=== PATIENT | female | born 1960 | race Caucasian/White ===

== ENCOUNTER 2018-08-23 11:49 | Inpatient (IN) | payer BC ==
[~2018-08-23 11:49] MED LIST: Buffered Lidocaine 0.9% SYRIN* 5 ML/SYR SYRINGE INTRADERM ONE; Bupivacaine 0.25% W/EPI* 10 ML SDV ONE; Lactated Ringers 1000 ML Bag* 1,000 ML IV SCH; Methylene Blue 0.5 %* 50 MG/10 ML AMP IV ONE
[2018-08-23] MEDS ORDERED: Heparin VIAL(*) 5000 UNITS/ML VIAL (FIVE THOUSAND) ONE (12:28)
[2018-08-23] MEDS ORDERED: ceFAZolin 2 GM PREMIX in ORs 2 GM/50 ML BAG IVPB ONE (12:28)
[2018-08-23] MEDS ORDERED: Scopolamine 1.5 mg* PATCH ONE (13:13)
[2018-08-23] MEDS ORDERED: Midazolam* 1 MG/ML 5 ML VIAL (5 MG) ONE (14:07)
[2018-08-23] MEDS ORDERED: Propofol* 10 MG/ML 20 ML BTL ONE (14:12)
[2018-08-23] MEDS ORDERED: fentaNYL* 50 MCG/ML 2 ML VIAL (100 MCG VIAL) ONE ×3 (14:18→16:37)
[2018-08-23] MEDS ORDERED: Atracurium* 10 MG/ML 10 ML VIAL ONE (14:19)
[2018-08-23] MEDS ORDERED: Dexamethasone IV* 4 MG/ML 1 ML (4 MG) ONE (14:25)
[2018-08-23] MEDS ORDERED: DiMENhydriNATE IV* 50 MG/ML VIAL IV PUSH PRN (15:42)
[2018-08-23] MEDS ORDERED: Ondansetron INJ* 2 MG/ML VIAL IV PRN (15:42)
[2018-08-23] MEDS ORDERED: Naloxone* 0.4 MG/ML 1 ML VIAL IV PRN (15:42)
[2018-08-23] MEDS ORDERED: Acetaminophen IV 1GM/100ML * 1,000 MG/100 ML VIAL IVPB ONE (15:42)
[2018-08-23] MEDS ORDERED: Ondansetron INJ* 2 MG/ML VIAL ONE (16:05)
[2018-08-23] MEDS ORDERED: Glycopyrrolate IV* 0.2 MG/ML 1 ML VIAL ONE (16:07)
[2018-08-23] MEDS ORDERED: Ketorolac INJ* 30 MG/ML 1 ML VIAL ONE (16:11)
[2018-08-23] MEDS ORDERED: HYDROcodone/ACET. 7.5/325 LIQ* 15 ML UDC PO PRN (16:30)
[2018-08-23] MEDS ORDERED: Acetaminophen ADULT LIQ* 650 MG/20.3 ML UDC PO PRN (16:30)
[2018-08-23] MEDS ORDERED: HYDROmorphone INJ1* 1 MG/ML SYRINGE IV PRN (16:30)
--- NOTE | 2018-08-23 16:30 | OP ---
Operative Report - Blank - Operative Report Date of Operation: 08/23/18 Note: Brief Operative Note Preop Dx: Morbid obesity; hiatal hernia Postop Dx: same (minimal hiatal hernia) Procedure: Laparoscopic Zane en Y gastric bypass Anesthesia: GET Surgeon: Cornelio Road Test Examiner: ELZA Mireles Fluids: 2400 ml crystalloid EBL: < 50 ml Specimen: none Drains: none Findings: dictated
[2018-08-23] MEDS: fentaNYL* 50 MCG/ML 2 ML VIAL (100 MCG VIAL) IV PRN ×4 (16:37→16:49)
[2018-08-23] MEDS ORDERED: HYDROmorphone INJ1* 1 MG/ML SYRINGE ONE (16:37)
[2018-08-23] MEDS ORDERED: Acetaminophen IV 1GM/100ML * 100 ML ONE (16:51)
[2018-08-23] MEDS: HYDROmorphone INJ1* 1 MG/ML SYRINGE IV PRN ×6 (16:53→20:32)
[2018-08-23] MEDS: Ondansetron INJ* 2 MG/ML VIAL IV PRN (17:52)
[2018-08-23] MEDS: Lactated Ringers 1000 ML Bag* 1,000 ML IV SCH (18:07)
[2018-08-23] MEDS: Famotidine IV* 10 MG/ML 2 ML (20 mg) IV SLOW PU SCH (20:32)
--- NOTE | 2018-08-23 21:31 | OP ---
CC: Thi Ball NP; Kimberli Virgen MD; [facility] * DATE OF OPERATION: 08/23/18 - ROOM #332 DATE OF : 56 SURGEON: Celestino Grimes MD DUNGEON MASTER: ELZA Diaz ANESTHESIOLOGIST: Daniele Scherer MD ANESTHESIA: General endotracheal. PRE-OP DIAGNOSES: Clinically severe obesity and hiatal hernia. POST-OP DIAGNOSES: Clinically severe obesity and hiatal hernia. OPERATIVE PROCEDURE: Laparoscopic Zane-en-Y gastric bypass. ESTIMATED BLOOD LOSS: Less than 50 mL. IV FLUIDS: Crystalloid. SPECIMENS: None. DRAINS: None. COMPLICATIONS: None. COUNTS: Instrument, needle, and sponge counts were correct. DESCRIPTION OF PROCEDURE: The patient was brought to the operating room and placed on the table supine. Sequential compression devices were placed on both lower extremities. General anesthesia was administered. She was positioned and padded appropriately. She was prepped and draped in the usual sterile fashion and received appropriate intravenous antibiotics. Time-out was performed. Local anesthetic was infiltrated into the skin and soft tissue prior to making each incision. Entry into the abdomen was through a left upper quadrant incision accommodating a 12-mm optical trocar. After accessing the peritoneal cavity, carbon dioxide was insufflated to a pressure of 15 mmHg. Under direct visualization, additional trocars were placed, 12 mm in the supraumbilical position, 12 mm in the right upper quadrant, 5-mm trocar in the right upper quadrant medially and 5-mm trocar in the left upper quadrant laterally. A Deonte liver retractor was placed percutaneously in the subxiphoid position and used to elevate the left lobe of the liver. The patient was noted to have a moderate-sized hiatal hernia. This was sliding type and easily was reduced. The fundus of the stomach was mobilized with left toney of the diaphragm until it was clearly visualized. Next, perigastric dissection was undertaken on the lesser curvature at approximately the second crossing vein. These vessels were divided with LigaSure and the lesser sac was entered. A gastric pouch was created with several firings of the EndoGIA stapler using ellis cartridges firing this towards the angle of His. This created a gastric pouch approximately 15 to 30 mL volume. Next, the patient's omentum was noted to be adherent in the pelvis and this was mobilized partially by lysing the adhesions. However, due to extensive adhesions after partial mobilization of the omentum, it was able to be retracted towards the right side of the abdomen and the transverse colon was able to be retracted upwards. The ligament of Treitz was identified and the jejunum was then measured out approximately 50 cm. At this point, the loop was sutured to the left side of the gastric pouch staple line and then a gastrojejunal anastomosis was created with the EndoGIA stapler with a 30-mm ellis cartridge. The common gastroenterotomy was closed over a 34-Monegasque gastric lavage tube with 3-0 PDS. The omega loop was divided to the left of the anastomosis and then the gastrojejunal anastomosis was tested with methylene blue dye solution instilled through the orogastric tube. No leak was identified. The solution was aspirated and tube was withdrawn. The Zane limb was measured out 75 cm and at this point a functional end-to-side jejunojejunostomy was created with a linear 60-mm EndoGIA stapler with ellis cartridge. The common enterotomy was run closed with 3-0 PDS. Lastly, the mesenteric defect was closed with interrupted figure- of-eight 3-0 silk sutures. After assuring hemostasis, the ports and the Deonte liver retractor were removed and carbon dioxide was released. Skin incisions were closed with 4-0 Monocryl in a subcuticular fashion and Steri- Strips were applied. The patient tolerated the procedure well, was extubated and transferred to Recovery in stable condition. [id number]/[facility] #: [id number]
[2018-08-23] MEDS: Heparin VIAL(*) 5000 UNITS/ML VIAL (FIVE THOUSAND) SUBCUT SCH (23:07)
[2018-08-24] MEDS: Ketorolac INJ* 30 MG/ML 1 ML VIAL IV PRN ×4 (00:36→21:05)
[2018-08-24] MEDS: Lactated Ringers 1000 ML Bag* 1,000 ML IV SCH ×3 (00:40→14:45)
[2018-08-24] MEDS: HYDROmorphone INJ1* 1 MG/ML SYRINGE IV PRN (03:25)
[2018-08-24] MEDS: Heparin VIAL(*) 5000 UNITS/ML VIAL (FIVE THOUSAND) SUBCUT SCH ×3 (06:05→21:05)
[2018-08-24] MEDS: Famotidine IV* 10 MG/ML 2 ML (20 mg) IV SLOW PU SCH ×2 (07:37→21:05)
[2018-08-24] MEDS: Levothyroxine TAB* 125 MCG TAB PO SCH ×2 (07:38→10:02)
[2018-08-24] MEDS: Mometasone/Formoter 200/5 MDI INH SCH (07:58)
--- NOTE | 2018-08-24 13:05 | PN ---
Progress Note - Progress Note Date of Service: 08/24/18 SOAP: Subjective: Pain under control. No N/V. Objective: Vital Signs Temp 98.3 F 08/24/18 12:11 Pulse 68 08/24/18 12:11 Resp 16 08/24/18 12:11 BP 108/49 08/24/18 12:11 Pulse Ox 95 08/24/18 12:11 Gen: sleeping but easily arousable. NAD. Abd: incisions c/d/i; mildly tender. Soft. Intake & Output 08/23/18 08/24/18 08/24/18 18:59 06:59 18:59 Intake Total 3000 990 980 Output Total 1450 350 Balance 3000 -460 630 Intake: IV Fluids 3000 990 980 LR 3000 990 980 Oral 0 Output: Urine 1450 350 Other: # Bowel Movements 0 Assessment: POD#1 s/p LRYGB. Doing well. Plan: Clears. Ambulate. Home AM if doing well.
[2018-08-24] MEDS: Ondansetron INJ* 2 MG/ML VIAL IV PRN (15:11)
[2018-08-24] MEDS: D5W 1/2 NS KCl 20 Meq 1000 ML* 1,000 ML IV SCH ×2 (15:12→23:31)
[2018-08-25] MEDS: Ondansetron INJ* 2 MG/ML VIAL IV PRN ×2 (04:06→18:27)
[2018-08-25] MEDS: Levothyroxine TAB* 125 MCG TAB PO SCH (06:02)
[2018-08-25] MEDS: Heparin VIAL(*) 5000 UNITS/ML VIAL (FIVE THOUSAND) SUBCUT SCH ×3 (06:02→21:36)
[2018-08-25] MEDS: D5W 1/2 NS KCl 20 Meq 1000 ML* 1,000 ML IV SCH ×2 (07:35→19:58)
[2018-08-25] MEDS: Ketorolac INJ* 30 MG/ML 1 ML VIAL IV PRN ×2 (07:35→18:27)
[2018-08-25] MEDS: Famotidine IV* 10 MG/ML 2 ML (20 mg) IV SLOW PU SCH ×2 (07:35→21:32)
--- NOTE | 2018-08-25 09:35 | PN ---
Progress Note - Progress Note Date of Service: 08/25/18 Note: S: POD #2. Having dry heaves, deepak after walking or using IS. She has taken up to 30 ml x2/hr of liquids, but not consistently. Also, desats, deepak w/ ambulation. Current Medications Acetaminophen (Tylenol Adult Liq*) 650 mg PO Q6H PRN PRN Reason: Temp > 101 F Or Mild Pain Hydrocodone Bitart/Acetaminophen (Nortab 7.5/325 Liq*) 15 ml PO Q6H PRN PRN Reason: PAIN Last Admin: 08/24/18 10:16 Dose: 15 ml Famotidine (Pepcid Iv*) 20 mg IV SLOW PU BID [facility] Last Admin: 08/25/18 07:35 Dose: 20 mg Heparin Sodium (Porcine) (Heparin Vial(*)) 5,000 units SUBCUT Q8HR [facility] Last Admin: 08/25/18 06:02 Dose: 5,000 units Hydromorphone HCl (Dilaudid Inj1s*) 0.5 mg IV Q3H PRN PRN Reason: moderate pain Last Admin: 08/24/18 03:25 Dose: 0.5 mg Hydromorphone HCl (Dilaudid Inj1s*) 1 mg IV Q3H PRN PRN Reason: SEVERE PAIN Potassium Chloride/Dextrose (D5w 1/2 Ns Kcl 20 Meq 1000 Ml*) 1,000 mls @ 125 mls/hr IV PER RATE [facility] Last Admin: 08/25/18 07:35 Dose: 125 mls/hr Ketorolac Tromethamine (Toradol Inj*) 30 mg IV Q6H PRN PRN Reason: PAIN Stop: 08/25/18 16:35 Last Admin: 08/25/18 07:35 Dose: 30 mg Levothyroxine Sodium (Synthroid Tab*) 125 mcg PO QAM@0600 [facility] Last Admin: 08/25/18 06:02 Dose: 125 mcg Mometasone Furoate/Formoterol Fumar (Dulera 200/5 Mdi*) 1 puff INH QAM [facility] Last Admin: 08/24/18 07:58 Dose: 1 inh Ondansetron HCl (Zofran Inj*) 4 mg IV Q6H PRN PRN Reason: NAUSEA/VOMITING Last Admin: 08/25/18 04:06 Dose: 4 mg O: Vital Signs - 8 hr 08/25/18 08/25/18 08/25/18 04:00 07:23 07:32 Temperature 98.1 F 98.2 F Pulse Rate 58 68 Respiratory 16 16 Rate Blood Pressure 115/56 118/43 (mmHg) O2 Sat by Pulse 96 90 93 Oximetry 08/25/18 07:39 Temperature Pulse Rate Respiratory 16 Rate Blood Pressure (mmHg) O2 Sat by Pulse Oximetry Intake and Output Last 24 Hours 08/23/18 08/24/18 08/25/18 08/26/18 06:59 06:59 06:59 06:59 Intake Total 3990 3511 Output Total 1450 1970 Balance 2540 1541 Weight 194 lb Intake: IV Fluids 3990 2971 D5W 1/2 NS 20 meq KCL 1006 LR 3990 1965 Oral 0 540 Output: Urine 1450 1970 Other: # Bowel Movements 0 0 Heart: reg Lungs: clear ant; few basilar crackles Abd: +BS; lap sites ok; soft; mild incisional tenderness A: s/p lap gastric bypass, still inadequate intake; desats w/ ambulation but asymptomatic P: will decrease IVF, but it looks like she will need one more day before she can maintain adequate oral hydration; will d/w Dr. Grimes.
[2018-08-25] MEDS: Mometasone/Formoter 200/5 MDI INH SCH (11:57)
[2018-08-26] MEDS: Ondansetron INJ* 2 MG/ML VIAL IV PRN (03:26)
[2018-08-26] MEDS: Levothyroxine TAB* 125 MCG TAB PO SCH (06:00)
[2018-08-26] MEDS: Heparin VIAL(*) 5000 UNITS/ML VIAL (FIVE THOUSAND) SUBCUT SCH ×3 (06:00→21:40)
[2018-08-26] MEDS: Famotidine IV* 10 MG/ML 2 ML (20 mg) IV SLOW PU SCH ×2 (07:45→21:37)
[2018-08-26] MEDS: Mometasone/Formoter 200/5 MDI INH SCH (08:55)
[2018-08-26] MEDS: D5W 1/2 NS KCl 20 Meq 1000 ML* 1,000 ML IV SCH (08:58)
[2018-08-26] MEDS ORDERED: D5W 1/2 NS KCl 20 Meq 1000 ML* 1,000 ML IV SCH (09:03)
--- NOTE | 2018-08-26 09:03 | PN ---
Progress Note - Progress Note Date of Service: 08/26/18 SOAP: Subjective: Dry heaves. Some flatus but feels bloated. Forcing herself to drink. Objective: Vital Signs Temp 98.6 F 08/26/18 07:19 Pulse 66 08/26/18 07:19 Resp 18 08/26/18 08:00 BP 134/66 08/26/18 07:19 Pulse Ox 94 08/26/18 08:00 Gen: sitting up; NAD Lungs: CTA B Abd: incis c/d/i; no erythema; softly distended; +BS. Intake & Output 08/25/18 08/26/18 08/26/18 18:59 06:59 18:59 Intake Total 1253 980 Output Total 800 875 300 Balance 453 105 -300 Intake: IV Fluids 953 470 D5W 1/2 NS 20 meq KCL 953 470 Oral 300 510 Output: Urine 800 875 300 Other: # Bowel Movements 0 Active Medications Generic Name Dose Route Start Last Admin Trade Name Freq PRN Reason Stop Dose Admin Acetaminophen 650 mg 08/23/18 16:30 08/26/18 03:22 Tylenol Adult Liq* PO 325 mg Q6H PRN Administration Temp > 101 F Or Mild Pain Hydrocodone Bitart/Acetaminophen 15 ml 08/23/18 16:30 08/24/18 10:16 Nortab 7.5/325 Liq* PO 15 ml Q6H PRN Administration PAIN Famotidine 20 mg 08/23/18 21:00 08/26/18 07:45 Pepcid Iv* IV SLOW PU 20 mg BID JESSICA Administration Heparin Sodium (Porcine) 5,000 units 08/23/18 22:00 08/26/18 06:00 Heparin Vial(*) SUBCUT 5,000 units Q8HR JESSICA Administration Hydromorphone HCl 0.5 mg 08/23/18 16:30 08/24/18 03:25 Dilaudid Inj1s* IV 0.5 mg Q3H PRN Administration moderate pain Hydromorphone HCl 1 mg 08/23/18 16:30 Dilaudid Inj1s* IV Q3H PRN SEVERE PAIN Potassium Chloride/Dextrose 1,000 mls @ 75 mls/hr 08/25/18 09:35 08/26/18 08: 58 D5w 1/2 Ns Kcl 20 Meq 1000 Ml* IV 75 mls/hr PER RATE JESSICA Administration Levothyroxine Sodium 125 mcg 08/24/18 06:00 08/26/18 06:00 Synthroid Tab* PO 125 mcg QAM@0600 JESSICA Administration Mometasone Furoate/Formoterol Fumar 1 puff 08/24/18 09:00 08/26/18 08:55 Dulera 200/5 Mdi* INH Not Given QAM JESSICA Ondansetron HCl 4 mg 08/23/18 16:30 08/26/18 03:26 Zofran Inj* IV 4 mg Q6H PRN Administration NAUSEA/VOMITING Assessment: POD#3 s/p LRYGB. Slow to progress. Plan: Cont po. KVO IVF. Ambulate. D/c when able to tolerated adequate po, possibly later today or AM.
[2018-08-27] MEDS: Levothyroxine TAB* 125 MCG TAB PO SCH (05:38)
[2018-08-27] MEDS: Heparin VIAL(*) 5000 UNITS/ML VIAL (FIVE THOUSAND) SUBCUT SCH (05:39)
--- NOTE | 2018-08-27 08:59 | PN ---
Progress Note - Progress Note Date of Service: 08/27/18 SOAP: Subjective: Feels much better No further N/V Tolerating po Passing flatus, ambulating in halls Minimal pain Objective: Temp Pulse Resp BP Pulse Ox 98.6 F 63 16 120/49 91 08/27/18 03:13 08/27/18 03:13 08/27/18 03:13 08/27/18 03:13 08/27/18 03:13 Intake & Output 08/25/18 08/26/18 08/27/18 08/28/18 06:59 06:59 06:59 06:59 Intake Total 3511 2233 1945 Output Total 1970 1675 2300 Balance 1541 558 -355 Intake: IV Fluids 2971 1423 970 D5W 1/2 NS 20 meq KCL 1006 1423 970 LR 1965 Oral 540 810 975 Output: Urine 1970 1675 2300 Other: # Bowel Movements 0 0 PEX: Comfortable in chair Lungs are clear Abd is soft and non-distended. Bowel sounds are present and are normoactive. Incisions are clean and dry. Ext without edema Assessment: POD# 4 s/p Lap gastric bypass Nausea-resolved Plan: D/C home today Follow up arranged Instructions given.
[2018-08-27 09:04] VITALS: BP 138/64
[2018-08-27] MEDS: Famotidine IV* 10 MG/ML 2 ML (20 mg) IV SLOW PU SCH (09:08)
== END 2018-08-27 11:08 | disposition home or self-care (01) | DRG 403 ==
LOC: AA 11:49 → SSU 16:30
PROVIDERS: ADMIT Surgery; ATTEND Surgery
PROC: 0D164ZA Bypass Stomach to Jejunum, Percutaneous Endoscopic Approach (ICD-10-PCS; principal; 2018-08-23 13:45)
DX: E66.01 Morbid (severe) obesity due to excess calories (principal); G47.33 Obstructive sleep apnea (adult) (pediatric); K21.9 Gastro-esophageal reflux disease without esophagitis; K44.9 Diaphragmatic hernia without obstruction or gangrene; J43.9 Emphysema, unspecified; G62.2 Polyneuropathy due to other toxic agents; E03.9 Hypothyroidism, unspecified; Z68.39 Body mass index [BMI] 39.0-39.9, adult; Z98.51 Tubal ligation status; Z90.89 Acquired absence of other organs; Z82.49 Family history of ischemic heart disease and other diseases of the circulatory system; Z83.3 Family history of diabetes mellitus; Z80.7 Family history of other malignant neoplasms of lymphoid, hematopoietic and related tissues; Z87.891 Personal history of nicotine dependence
CPT/HCPCS: A9270-GY; J0690; J1100; J1170; J1644; J1885; J2250; J2405; J2704; J3010

== ENCOUNTER 2018-12-26 13:48 | Emergency (ER) | payer BC ==
[2018-12-26 16:53] LABS: ABS Basophils 0.1 10^3/ul (0-0.2); ABS Eosinophils 0.1 10^3/ul (0-0.6); ABS Lymphocytes 2.6 10^3/ul (1.0-4.8); ABS Monocytes 1.1 10^3/ul (0-0.8); ABS Neutrophils 4.5 10^3/ul (1.5-7.7); ABS Nucleated RBC 0 10^3/ul; Eosinophil % 1.7 %; Hematocrit 44 % (33-41); Lymphocyte % 31.2 %; Mean Corpuscular HGB Conc 34 g/dL (31-36); Mean Corpuscular Hemoglobin 32 pg (27-31); Mean Corpuscular Volume 96 fL (80-97); Mean Platelet Volume 10.9 fL (7.4-10.4); Nucleated Red Blood Cells % 0.1; Platelet Count 214 10^3/uL (150-450); Red Blood Count 4.62 10^6 /uL (3.70-4.87); Red Cell Distribution Width 13 % (10.5-15); White Blood Count 8.5 10^3/uL (3.5-10.8)
[2018-12-26 17:10] LABS: Albumin 4.3 g/dL (3.2-5.2); Albumin/Globulin Ratio 1.6 (1-3); BUN/Creatinine Ratio 21.5 (8-20); C Reactive Protein 5.81 mg/L (<8.01); Calcium 9.6 mg/dL (8.6-10.3); EGFR African American 112.5 (>60); Globulin 2.7 g/dL (2-4); Potassium 4.1 mmol/L (3.5-5.0); Total Bilirubin 0.4 mg/dL (0.2-1.0)
[2018-12-26] MEDS ORDERED: NS 0.9% 1000 ML** 2,000 ML IV ONE (19:55)
[2018-12-26] MEDS ORDERED: Ondansetron INJ* 2 MG/ML VIAL IV ONE (19:55)
--- NOTE | 2018-12-26 19:57 | ED ---
GI/ HPI - HPI Summary HPI Summary: Patient is a 58 y/o F presenting to ED with complaints of diarrhea, lower abdominal pain, dehydration, recent weight loss. PSHx of gastric sleeve this past August, as such patient reports that she does not vomit but only dry heaves. No other abdominal surgeries reported. She states that on 12/20, she caught a "stomach bug", Patient states that she had been experiencing diarrhea, some lower abdominal pain since then. She notes that she has had difficulty with PO intake and reports loss of ten pounds since 12/20. Patient is followed by Dr. Grimes. On triage reassessment, pain is rated 5/10. Nothing is noted to aggravate/alleviate Sx. Home medications and allergies are reviewed. - History of Current Complaint Chief Complaint: EDNauseaVomitDiarrh Time Seen by Provider: 12/26/18 19:51 Stated Complaint: CANT EAT/DRINKLOST 10 LBS IN 5 DAYS PER PT Hx Obtained From: Patient Onset/Duration: Started Days Ago - since 12/20, Still Present Timing: Constant, Lasting Days - since 12/20 Severity: Moderate - 5/10 Current Severity: Moderate - 5/10 Pain Intensity: 5 Location of Pain: Other - lower Associated Signs and Symptoms: Positive: Diarrhea, Abdominal Pain - lower, Other : - decreased PO intake, weight loss Aggravating Factor(s): Nothing Alleviating Factor(s): Nothing - Additional Pertinent History Primary Care Physician: NISA - Allergy/Home Medications Allergies/Adverse Reactions: Allergies Allergy/AdvReac Type Severity Reaction Status Date / Time No Known Allergies Allergy Verified 08/23/18 12:35 PMH/Surg Hx/FS Hx/Imm Hx Endocrine/Hematology History: Reports: Hx Thyroid Disease Denies: Hx Diabetes Cardiovascular History: Denies: Hx Hypertension, Hx Pacemaker/ICD, Other Cardiovascular Problems/ Disorders Respiratory History: Reports: Hx Asthma, Hx Chronic Obstructive Pulmonary Disease (COPD), Hx Sleep Apnea - NO BIPAP, Other Respiratory Problems/Disorders - COPD GI History: Reports: Hx Gastroesophageal Reflux Disease, Hx Hiatal Hernia - POSSIBLE History: Denies: Hx Dialysis, Hx Renal Disease Musculoskeletal History: Reports: Hx Tendonitis - BILATERAL HIPS AND ANKLES Denies: Hx Osteoporosis Sensory History: Reports: Hx Contacts or Glasses Denies: Hx Hearing Aid Opthamlomology History: Reports: Hx Contacts or Glasses Psychiatric History: Denies: Hx Panic Disorder - Cancer History Hx Chemotherapy: No Hx Radiation Therapy: No - Surgical History Surgery Procedure, Year, and Place: RT ANKLE & RECON; TUBAL LIGATION; BREAST REDUCTION; APPENDECTOMY; RT 5TH TOE. HYSTERECTOMY Hx Anesthesia Reactions: Yes - HAS VOMITING AFTER SURGERY - Immunization History Date of Tetanus Vaccine: Unk Date of Influenza Vaccine: Fall 2013 Infectious Disease History: No Infectious Disease History: Denies: Hx Clostridium Difficile, Hx Hepatitis, Hx Human Immunodeficiency Virus (HIV), Hx of Known/Suspected MRSA, Hx Shingles, Hx Tuberculosis, History Other Infectious Disease, Traveled Outside the [place] in Last 30 Days - Family History Known Family History: Positive: Cardiac Disease, Hypertension - Social History Alcohol Use: Rare Substance Use Type: Reports: None Smoking Status (MU): Former Smoker Have You Smoked in the Last Year: No Review of Systems Constitutional: Other - POSITIVE - RECENT WEIGHT LOSS, DECREASED PO INTAKE Positive: Abdominal Pain, Diarrhea All Other Systems Reviewed And Are Negative: Yes Physical Exam - Summary Physical Exam Summary: Appearance: Well-appearing, Well-nourished, lying in bed comfortably Skin: Warm, dry, no obvious rash Eyes: sclera anicteric, no conjunctival pallor ENT: mucous membranes moist, pharynx appears normal Neck: Supple, nontender Respiratory: Clear to auscultation, no signs of respiratory distress Cardiovascular: Normal S1, S2. No murmurs. Normal distal pulses in tibial and radial bilaterally. Abdomen: Soft, nontender, normal active bowel sounds present Musculoskeletal: Normal, Strength/ROM Intact Neurological: A&Ox3, awake and alert, mentation is normal, speech is fluent and appropriate Psychiatric: affect is normal, does not appear anxious or depressed Triage Information Reviewed: Yes Vital Signs On Initial Exam: Initial Vitals Temp Pulse Resp BP Pulse Ox 98.7 F 59 20 145/77 99 12/26/18 13:58 12/26/18 13:58 12/26/18 13:58 12/26/18 13:58 12/26/18 13:58 Vital Signs Reviewed: Yes Diagnostics - Vital Signs Vital Signs Temp Pulse Resp BP Pulse Ox 12/26/18 19:31 98.2 F 54 18 161/85 97 12/26/18 17:53 97.6 F 57 20 131/82 95 12/26/18 15:54 97.2 F 57 20 149/78 100 12/26/18 13:58 98.7 F 59 20 145/77 99 - Laboratory Lab Results: Lab Results 12/26/18 12/26/18 12/26/18 Range/Units 16:39 16:39 16:40 WBC 8.5 (3.5-10.8) 10^3/uL RBC 4.62 (3.70-4.87) 10^6 /uL Hgb 15.0 (12.0-16.0) g/dL Hct 44 H (33-41) % MCV 96 (80-97) fL MCH 32 H (27-31) pg MCHC 34 (31-36) g/dL RDW 13 (10.5-15) % Plt Count 214 (150-450) 10^3/uL MPV 10.9 H (7.4-10.4) fL Neut % (Auto) 53.5 % Lymph % (Auto) 31.2 % [place] % (Auto) 12.9 % Eos % (Auto) 1.7 % Baso % (Auto) 0.7 % Absolute Neuts (auto) 4.5 (1.5-7.7) 10^3/ul Absolute Lymphs (auto) 2.6 (1.0-4.8) 10^3/ul Absolute Monos (auto) 1.1 H (0-0.8) 10^3/ul Absolute Eos (auto) 0.1 (0-0.6) 10^3/ul Absolute Basos (auto) 0.1 (0-0.2) 10^3/ul Absolute Nucleated RBC 0 10^3/ul Nucleated RBC % 0.1 Sodium 139 (135-145) mmol/L Potassium 4.1 (3.5-5.0) mmol/L Chloride 105 (101-111) mmol/L Carbon Dioxide 27 (22-32) mmol/L Anion Gap 7 (2-11) mmol/L BUN 14 (6-24) mg/dL Creatinine 0.65 (0.51-0.95) mg/dL Est GFR ( Amer) 112.5 (>60) Est GFR (Non-Af Amer) 93.0 (>60) BUN/Creatinine Ratio 21.5 H (8-20) Glucose 87 (70-100) mg/dL Lactic Acid 0.8 (0.5-2.0) mmol/L Calcium 9.6 (8.6-10.3) mg/dL Total Bilirubin 0.40 (0.2-1.0) mg/dL AST 24 (13-39) U/L ALT 22 (7-52) U/L Alkaline Phosphatase 71 (34-104) U/L C-Reactive Protein 5.81 (<8.01) mg/L Total Protein 7.0 (6.4-8.9) g/dL Albumin 4.3 (3.2-5.2) g/dL Globulin 2.7 (2-4) g/dL Albumin/Globulin Ratio 1.6 (1-3) Lipase 14 (11.0-82.0) U/L Result Diagrams: 12/26/18 16:39 12/26/18 16:39 Lab Statement: Any lab studies that have been ordered have been reviewed, and results considered in the medical decision making process. - CT abd/pel ct CT Interpretation Completed By: Radiologist Summary of CT Findings: IMPRESSION: 1. Mild stranding adjacent to the head of the pancreas. This could be. artifactual or represent early pancreatitis. Correlate with amylase and lipase. levels. 2. Surgical change in the stomach. No bowel obstruction. 3. Diverticulosis coli. No evidence of diverticulitis. 4. Post hysterectomy. THIS REPORT WAS REVIEWED BY DR. BURNHAM. Re-Evaluation - Re-Evaluation First Eval Re-Evaluation Time: 00:07 Comment: Results of labs and tests were discussed with patient, she will be discharged to home. She is agreeable with this. GIGU Course/Dx - Course Course Of Treatment: Patient is a 58 y/o F presenting to ED with complaints of diarrhea, lower abdominal pain, dehydration, recent weight loss. PSHx of gastric sleeve this past August, as such patient reports that she does not vomit but only dry heaves. No other abdominal surgeries reported. She states that on 12/20, she caught a "stomach bug", Patient states that she had been experiencing diarrhea, some lower abdominal pain since then. She notes that she has had difficulty with PO intake and reports loss of ten pounds since 12/20. Patient is followed by Dr. Grimes. Physical exam is unremarkable. Patient's case was discussed with Dr. Grimes, Dr. Grimes states to continue with plan for CT ABD/PEL. Labs showed Hct 44, MCH 32, MPV 10.9, absolute monos 1.1, BUN/ creatinine ratio 21.5. First and second lactic acid were both 0.8, CRP 5.81, lipase 14. UA showed 1+ ketones, 3+ leukocyte esterase, 1+ WBC, present squamous eptih cells. During ED course, patient received fluids. CT ABD/PEL IMPRESSION: 1. Mild stranding adjacent to the head of the pancreas. This could be. artifactual or represent early pancreatitis. Correlate with amylase and lipase. levels. 2. Surgical change in the stomach. No bowel obstruction. 3. Diverticulosis coli. No evidence of diverticulitis. 4. Post hysterectomy. Results of labs and tests were discussed with patient, she will be discharged to home. She is agreeable with this. - Diagnoses Provider Diagnoses: Gastroenteritis, Abdominal pain - Physician Notifications Discussed Care Of Patient With: Celestino Grimes Time Discussed With Above Provider: 21:51 Instructed by Provider To: Other - Patient's case was discussed with Dr. Grimes , Dr. Grimes states to continue with plan for CT ABD/PEL. Discharge - Sign-Out/Discharge Documenting (check all that apply): Patient Departure - discharge Patient Received Moderate/Deep Sedation with Procedure: No - Discharge Plan Condition: Stable Disposition: HOME Patient Education Materials: Gastroenteritis (ED) Referrals: Celestino Grimes MD [Medical Doctor] - If Needed Additional Instructions: Your blood work and CT scan did not show any major abnormalities. If you continue to have any symptoms, check in with Dr. Grimes as he may wish to order further tests on you or send you to a GI specialist. - Attestation Statements Document Initiated by Scribe: Yes Documenting Scribe: KAYCE KILPATRICK Provider For Whom Scribe is Documenting (Include Credential): MATTEO BURNHAM MD Scribe Attestation: I, KAYCE KILPATRICK, scribed for MATTEO BURNHAM MD on 12/27/18 at 0056.
[2018-12-26] MEDS ORDERED: Iohexol 300* (CONTRAST) 10 ML SDV IV ONE (22:37)
[2018-12-26 23:08] LABS: Urine Appearance Cloudy; Urine Bacteria Absent (Absent); Urine Bilirubin Negative (Negative); Urine Blood Negative (Negative); Urine Color Yellow; Urine Glucose Negative (Negative); Urine Ketones 1+ (Negative); Urine Nitrite Negative (Negative); Urine Protein Negative (Negative); Urine Red Blood Cell Absent (Absent); Urine Specific Gravity 1.041 (1.010-1.030); Urine Squamous Epithelial Cell Present (Absent); Urine Urobilinogen Negative (Negative); Urine White Blood Cell 1+(6-10/hpf) (Absent)
[2018-12-27 00:17] VITALS: BP 134/66
== END 2018-12-27 00:16 | disposition home or self-care (01) ==
LOC: ED 13:48
DX: K52.9 Noninfective gastroenteritis and colitis, unspecified (principal); R10.9 Unspecified abdominal pain; E07.9 Disorder of thyroid, unspecified
CPT/HCPCS: 36415; 74177; 80053; 81003; 81015; 83605; 83690; 85025; 86140; 87086; 96361; 96374; 96375; 99283; J2405; Q9967

== ENCOUNTER 2024-08-21 10:08 | Inpatient (IN) ==
[2024-08-21 10:42] LABS: ABS Basophils 0.1 10^3/uL (0.0-0.1); ABS Lymphocytes 0.6 10^3/uL (1.0-4.8); ABS Monocytes 1.2 10^3/uL (0.0-0.9); ABS Neutrophils 17.5 10^3/uL (1.5-7.6); Hematocrit 43.3 % (35-45); Mean Corpuscular Hemoglobin 33.6 pg (27-33); Mean Corpuscular Hgb Conc 34.7 g/dL (31-36); Mean Corpuscular Volume 96.9 fL (80-97); Mean Platelet Volume 9.5 fL (7.5-11.2); Platelet Count 220 10^3/uL (150-450); Red Blood Count 4.47 10^6/uL (3.63-4.92); Red Cell Distribution Width 13.4 % (12-17); White Blood Count 19.4 10^3/uL (3.8-11.8)
[2024-08-21] MEDS: Ondansetron 4 mg VIAL 2 MG/ML 2 ml VIAL IV ONE (11:00)
[2024-08-21] MEDS: Lactated Ringers 1000 ml BAG 1,000 ML IV ONE (11:01)
[2024-08-21 11:46] LABS: Albumin 3.7 g/dL (3.2-5.2); Albumin/Globulin Ratio 1.4 (1-3); Calcium 8.9 mg/dL (8.6-10.3); Creatinine, Serum 0.49 mg/dL (0.51-0.95); Globulin 2.6 g/dL (2-4); Potassium 4.2 mmol/L (3.5-5.0); Total Bilirubin 0.9 mg/dL (0.2-1.0); Total Protein 6.3 g/dL (6.4-8.9); eGFR CKD-EPI 103.9 (>60)
[2024-08-21] MEDS: cefTRIAXone 1 gm/50 mL D5W 1 GM/50 ML BAG IV ONE (12:06)
[2024-08-21 12:10] LABS: High Sensitivity Troponin 1 Hr 24 pg/mL (<15)
[2024-08-21] MEDS ORDERED: Al Hydrox/Mg Hydrox/Simet LIQ 30 ML UDC PO PRN (12:10)
[2024-08-21] MEDS ORDERED: Albuterol HFA INHALER 8 gm MDI INH PRN (12:13)
[2024-08-21] MEDS: Morphine 2 MG/ML SYRINGE IV PRN (14:00)
[2024-08-21] MEDS: NS 0.9% 1000 ml BAG 1,000 ML IV SCH (15:14)
[2024-08-21] MEDS: Azithromycin 500 mg/250 ml NS 500 MG/250 ML BAG IVPB ONE (17:08)
[2024-08-21] MEDS ORDERED: HYDROmorphone 1 MG/1 ML SYRINGE IV SLOW PU PRN (17:14)
[2024-08-21] MEDS: Lidocaine 1% MPF 5 ML VIAL INJ ONE (17:28)
[2024-08-21] MEDS: NS 0.9% 1000 ml BAG 1,000 ML IV ONE (18:02)
[2024-08-22 06:06] LABS: ABS Eosinophils 0.2 10^3/uL (0.0-0.5); ABS Lymphocytes 0.8 10^3/uL (1.0-4.8); ABS Neutrophils 12.9 10^3/uL (1.5-7.6); Eosinophil % 1.2 %; Hematocrit 36.7 % (35-45); Hemoglobin 12.4 g/dL (11.5-14.3); Lymphocyte % 5.4 %; Mean Corpuscular Hemoglobin 32.7 pg (27-33); Mean Corpuscular Hgb Conc 33.6 g/dL (31-36); Mean Corpuscular Volume 97.2 fL (80-97); Mean Platelet Volume 9.8 fL (7.5-11.2); Platelet Count 177 10^3/uL (150-450); Red Blood Count 3.78 10^6/uL (3.63-4.92); Red Cell Distribution Width 13.8 % (12-17); White Blood Count 14.9 10^3/uL (3.8-11.8)
[2024-08-22 06:33] LABS: Calcium 8.1 mg/dL (8.6-10.3); Creatinine, Serum 0.43 mg/dL (0.51-0.95); Magnesium 1.9 mg/dL (1.9-2.7); Potassium 3.9 mmol/L (3.5-5.0); eGFR CKD-EPI 107.2 (>60)
[2024-08-22] MEDS ORDERED: cefTRIAXone 1 gm/50 mL D5W 1 GM/50 ML BAG IV SCH (09:00)
[2024-08-22] MEDS: Enoxaparin 40 MG/0.4 ML SYR SUBCUT SCH (10:19)
[2024-08-22] MEDS: Azithromycin 250 MG in NS 0.9% 250 ml 250 ML IVPB SCH (10:47)
[2024-08-22] MEDS: cefTRIAXone 1 gm/50 mL D5W 1 GM/50 ML BAG IV SCH (12:24)
[2024-08-23] MEDS: Magnesium Sulfate 2 gm BAG 2 GM/50 ML BAG IVPB ONE (08:17)
[2024-08-23] MEDS: PAIN RELIEVING RUB (MENTHOL/SALICYLATE) 1 APPLIC TUBE TOPICAL PRN (21:06)
[2024-08-24] MEDS: Albuterol/Ipratropium NEB.SOL (2.5/0.5 MG) 3 ML NEB.SOLN INH PRN (03:37)
[2024-08-24] MEDS: Lidocaine PATCH 5% PATCH TRANSDERM SCH (20:14)
[2024-08-25 06:57] LABS: Hematocrit 36.4 % (35-45); Hemoglobin 12.4 g/dL (11.5-14.3); Mean Corpuscular Hgb Conc 34.1 g/dL (31-36); Mean Corpuscular Volume 96.7 fL (80-97); Mean Platelet Volume 9.6 fL (7.5-11.2); Platelet Count 241 10^3/uL (150-450); Red Blood Count 3.77 10^6/uL (3.63-4.92); Red Cell Distribution Width 13.5 % (12-17); White Blood Count 8.3 10^3/uL (3.8-11.8)
[2024-08-25 07:58] LABS: Calcium 7.8 mg/dL (8.6-10.3); Creatinine, Serum 0.4 mg/dL (0.51-0.95); Potassium 3.1 mmol/L (3.5-5.0); eGFR CKD-EPI 109.1 (>60)
[2024-08-26 06:55] LABS: Hematocrit 40.2 % (35-45); Hemoglobin 13.9 g/dL (11.5-14.3); Mean Corpuscular Hemoglobin 33.7 pg (27-33); Mean Corpuscular Hgb Conc 34.5 g/dL (31-36); Mean Corpuscular Volume 97.6 fL (80-97); Mean Platelet Volume 9.6 fL (7.5-11.2); Platelet Count 290 10^3/uL (150-450); Red Blood Count 4.12 10^6/uL (3.63-4.92); Red Cell Distribution Width 13.8 % (12-17); White Blood Count 9.4 10^3/uL (3.8-11.8)
[2024-08-26 07:18] LABS: Creatinine, Serum 0.39 mg/dL (0.51-0.95); Magnesium 1.8 mg/dL (1.9-2.7); Potassium 3.7 mmol/L (3.5-5.0); eGFR CKD-EPI 109.8 (>60)
[2024-08-26 08:51] LABS: ABS Basophils 0.1 10^3/uL (0.0-0.1); ABS Eosinophils 0.5 10^3/uL (0.0-0.5); ABS Lymphocytes 1.4 10^3/uL (1.0-4.8); ABS Neutrophils 6.5 10^3/uL (1.5-7.6); Eosinophil % 5.8 %; Lymphocyte % 14.9 %
[2024-08-26] MEDS: Magnesium Sulfate 2 gm BAG 2 GM/50 ML BAG IVPB ONE (08:58)
[2024-08-26 11:36] VITALS: BP 138/68
== END 2024-08-26 13:35 | disposition home or self-care (01) | DRG 193 ==
LOC: ED 10:08 → EDHOLD 10:08 → MED 12:47 → SUATTDRO 08-22 13:03
PROVIDERS: ADMIT Internal Medicine; ATTEND Student in an Organized Health Care Education/Training Program